=== PATIENT | female | born 1960 | race Caucasian/White ===

== ENCOUNTER 2017-06-13 14:26 | Emergency (ER) | payer MEDICAID ==
[~2017-06-13] VITALS: Ht 170.2 cm; Wt 72.0 kg
[~2017-06-13 14:26] MED LIST: DOXY-200 PO; LACT1CAP26 PO; VANC1FRO2 IV
[2017-06-13 14:34] VITALS: BP 133/80
[2017-06-13] MEDS ORDERED: LIDOcaine 1% 30ml preserv. free vial IJ ONE (16:05)
[2017-06-13] MEDS ORDERED: SULF1TAB49 PO (17:03)
[2017-06-13] MEDS ORDERED: CEPH-572 PO (17:03)
== END 2017-06-13 17:26 | disposition home or self-care (01) ==
LOC: ER 14:27
DX: N61.1 Abscess of the breast and nipple (principal); Z79.899 Other long term (current) drug therapy
CPT/HCPCS: 10060; 99283; A6449; J3490

== ENCOUNTER 2023-08-30 19:35 | Emergency (ER) | payer OTHER, MEDICAID ==
[~2023-08-30] VITALS: Ht 170.2 cm; Wt 71.0 kg
[~2023-08-30 19:35] MED LIST changes: -DOXY-200 PO; +DOXY-243 PO
[2023-08-30] MEDS ORDERED: ketorolac trometh inj. 60 MG/2 ML VIAL IM ONE (21:25)
[2023-08-30] MEDS: HYDROcodone/acetaminophen 5mg/325mg tablet PO ONE (22:04)
[2023-08-30] MEDS: cyclobenzaprine 10mg tablet PO ONE (22:04)
[2023-08-30] MEDS: dexamethasone sod phosphate 10mg/ml inj IM STA (22:16)
[2023-08-30] MEDS: ketorolac tromethamine 15mg/ml inj. IM ONE (22:18)
[2023-08-30] MEDS ORDERED: CYCL-1 PO (23:37)
[2023-08-30] MEDS ORDERED: LIDO700A32 TOP (23:37)
[2023-08-31 00:22] VITALS: BP 122/80; PULSE 81; RESP 16; TEMP 97.8; O2SAT 98
== END 2023-08-30 23:53 | disposition home or self-care (01) ==
LOC: ER 19:36
DX: S39.012A Strain of muscle, fascia and tendon of lower back, initial encounter (principal); M48.56XA Collapsed vertebra, not elsewhere classified, lumbar region, initial encounter for fracture; V89.2XXA Person injured in unspecified motor-vehicle accident, traffic, initial encounter; Y93.89 Activity, other specified; Y92.89 Other specified places as the place of occurrence of the external cause; Y99.8 Other external cause status
CPT/HCPCS: 72040; 72070; 72100; 96372; 99284; J1100; J1885